=== PATIENT | female | born 1995 | race Caucasian/White ===

== ENCOUNTER 2018-01-05 14:27 | Emergency (ER) | payer OTHER ==
[~2018-01-05] VITALS: Ht 157.5 cm; Wt 58.0 kg
[2018-01-05 14:30] VITALS: BP 123/74; PULSE 77; TEMP 36.4; O2SAT 100; Ht 157.5 cm; Wt 58.0 kg
[2018-01-05] MEDS ORDERED: BCPILLS PO (15:02)
--- NOTE | 2018-01-05 15:47 | EMERGENCY ROOM VISIT NOTE ---
History First contact with patient: 14:36 Chief Complaint: WOUND INFECTION Stated Complaint: INFECTED CYST Nursing Triage Summary: pylonidol cyst drained on Thursday pt concerned infected increased drainage History of Present Illness The patient is a 22 year old female who presents to the Emergency Room with complaints of an infected pilonidal cyst. Patient reports that she was seen at the [facility] urgent care [facility] on Thursday with an attempted I&D procedure that was not productive of any purulent material. The patient reports that he did place some packing in the wound, and suggested that she leave the packing in for 7 days. The patient reports increasing swelling and persistent drainage from the wound. She denies any fevers or chills, pain radiating into the lower back or rectal region. She rates her discomfort a 6 out of 10. Review of Systems 10 system review was performed and was negative except for pertinent positives and negatives as indicated in history of present illness Past Medical/Surgical History Medical Problems: (1) Pilonidal cyst with abscess Surgical Problems: (1) No history of previous surgery Family History Unremarkable Social History Smoking Status: Never Smoker Alcohol Use: occasionally Marital Status: single Occupation Status: [employer] student Current/Historical Medications Scheduled Control Pills ( Control Pills), 1 TAB PO DAILY Physical Exam Vital Signs Date Time Temp Pulse Resp B/P (MAP) Pulse Ox O2 Delivery O2 Flow Rate FiO2 01/05/18 14:30 36.4 77 20 123/74 100 Room Air Physical Exam CONSTITUTIONAL: Healthy and well nourished. Alert and oriented X 3 with positive affect. HEENT: Normocephalic, atraumatic. Pupils equal, round and reactive. NECK: Full active range of motion without discomfort. GASTROINTESTINAL: Bowel sounds present in all quadrants. Soft and nontender to palpation. MUSCULOSKELETAL: Full range of motion of all joints without discomfort. INTEGUMENTARY: Examination shows a 1.5 cm vertically oriented incision over the pilonidal region. Packing is still within the wound. There is no overriding erythema or significant induration. The packing was removed to show no underlying fluctuance or purulent drainage. NEUROLOGIC: No focal neurologic deficits noted. Medical Decision & Procedures ED Course Patient history and physical exam were performed. Nurse's notes were reviewed. Vital signs were reviewed and were normal. The packing was removed to show no significant underlying infection. I suspect the patient's discomfort and increased drainage is from the packing being in place for longer than 72 hours. The patient was encouraged to continue irrigating the wound with normal saline that she has at home. Watch for any worsening redness, swelling, pain, drainage or fever. Ibuprofen or Tylenol as needed for pain. The patient was happy with plan of care, and denied any significant discomfort at the time of discharge. Medical Decision Medication Reconcilliation Current Medication List: was personally reviewed by me Blood Pressure Screening Patient's blood pressure: Normal blood pressure Impression Primary Impression: Pilonidal cyst with abscess Departure Information Dispostion Home / Self-Care Condition [employer] HOME CARE DOCUMENTATION FORM, IMPORTANT VISIT INFORMATION Patient Instructions My [facility] Additional Instructions Continue to irrigate the wound twice daily until the wound closes ( approximately 2 days). Ibuprofen or Tylenol as needed for pain. Return to the emergency department for any progressively worsening swelling, pain or redness.
== END 2018-01-05 15:11 | disposition home or self-care (01) ==
LOC: C.EDB 14:29 → C.EDD 15:11
DX: L05.01 Pilonidal cyst with abscess (principal); Z79.3 Long term (current) use of hormonal contraceptives